=== PATIENT | male | born 1960 | race Caucasian/White ===

== ENCOUNTER 2018-02-03 15:16 | Outpatient (CLI) | payer BC ==
[~2018-02-03] VITALS: Ht 175.3 cm; Wt 99.8 kg
[2018-02-03] MEDS ORDERED: AMLO5TAB7 PO (15:44)
[2018-02-03] MEDS ORDERED: BISO5TAB PO (15:44)
[2018-02-03] MEDS ORDERED: LOVA20TA2 PO (15:44)
[2018-02-03] MEDS ORDERED: LISI-552 PO (15:44)
[2018-02-03] MEDS ORDERED: TRIA1TAB3 PO (15:44)
== END 2018-02-03 15:45 | disposition home or self-care (01) ==
LOC: PREOP 15:16
PROVIDERS: ATTEND Internal Medicine
DX: Z01.818 Encounter for other preprocedural examination (principal)

== ENCOUNTER 2018-02-07 07:38 | Day surgery (SDC) | payer BC ==
--- NOTE | 2018-01-23 15:46 | HISTORY AND PHYSICAL ---
DATE OF SERVICE: COLONOSCOPY H AND P HISTORY OF PRESENT ILLNESS: The patient is a 56-year-old white male seen for followup of hypertension in the office on 01/15. He reports that he has been feeling well except he does have some chronic left ankle pain with a history of traumatic arthritis. He is not aware of any family history for colon cancer and has noted no blood in the stool either bright red or melanotic. PAST MEDICAL HISTORY: Significant for hypertension and hyperlipidemia as well as traumatic arthritis, left ankle. PHYSICAL EXAMINATION: GENERAL: Revealed a well-appearing white male in no acute distress. VITAL SIGNS: Blood pressure 120/70, weight was down 1 pound to 222.8 pounds. CHEST: Clear. CARDIOVASCULAR: Regular rate and rhythm without murmur, S3 or S4. HEENT: He is a Mallampati class 3 oropharyngeal configuration. No evidence for erythema or exudate noted. ABDOMEN: Soft, supple without mass or organomegaly or tenderness. EXTREMITIES: Reveal no cyanosis, clubbing or edema. ASSESSMENT AND PLAN: The patient was set up for screening colonoscopy on 02/07/2018. Rectal exam deferred at the time of the procedure. Prep instructions with Suprep kit were given and questions were answered. Job ID: [id number] DocumentID: [id number] Dictated Date: 01/22/2018 15:00:18 Chief Nurse Anesthetist Date: 01/22/2018 15:21:17 Dictated By: DIONISIO ROBLES MD [facility]
[~2018-02-07] VITALS: Ht 175.3 cm; Wt 99.8 kg
[~2018-02-07 07:38] MED LIST: AMLO5TAB7 PO; BISO5TAB PO; LISI-552 PO; LOVA20TA2 PO; TRIA1TAB3 PO
[2018-02-07] MEDS ORDERED: D5 LR IV SOLUTION 1,000 ML IV STA (07:42)
[2018-02-07] MEDS ORDERED: LIDOCAINE JELLY 2% 6 ML SYRINGE MM PRN (07:45)
[2018-02-07] MEDS ORDERED: MIDAZOLAM 2 MG/2 ML (VERSED) VIAL IVP ONE (07:45)
[2018-02-07] MEDS ORDERED: fentaNYL INJECTION 100 MCG/2 ML AMP IVP ONE (07:45)
[2018-02-07 07:57] VITALS: BP 122/83
--- NOTE | 2018-02-07 08:03 | Pre-Op Note & Conscious Sedat ---
Pre-Operative Progress Note H&P Reviewed The H&P was reviewed, patient examined and no changes noted. Date H&P Reviewed: Feb 07, 2018 Time H&P Reviewed: 08:02 Conscious Sedation Pre-Proced ASA Score 2 For ASA 3 and 4: Consider anesthesia and medical clearance. Also, for patients with a history of failed moderate sedation consider anesthesia. Airway Lungs Heart ASA score ASA 1: a normal healthy patient ASA 2: a patient with a mild systemic disease (mid diabetes, controlled hypertension, obesity ASA 3: a patient with a severe systemic disease that limits activity (angina , COPD, prior Myocardial infarction) ASA 4: a patient with an incapacitating disease that is a constant threat to life (CHF, renal failure) ASA 5: a moribund patient not expected to survive 24 hrs. (ruptured aneurysm) ASA 6: a declared brain patient whose organs are being harvested. For emergent operations, add the letter E after the classification Mallampati Classification Grade 3 Sedation Plan Analgesia, Amnesia, Plan communicated to team members, Discussed options with patient/fam, Discussed risks with patient/fam The patient is an appropriate candidate to undergo the planned procedure, sedation, and anesthesia. The patient immediately re-assessed prior to indication. DIONISIO ROBLES MD Feb 07, 2018 08:03
[2018-02-07] MEDS ORDERED: fentaNYL INJECTION 100 MCG/2 ML AMP ONE (08:21)
[2018-02-07] MEDS ORDERED: LIDOCAINE JELLY 2% 6 ML SYRINGE ONE (08:21)
[2018-02-07] MEDS ORDERED: MIDAZOLAM 2 MG/2 ML (VERSED) VIAL ONE ×2 (08:22)
[2018-02-07] MEDS ORDERED: SIMETHICONE 40 MG/0.6 ML (MYLICON DROPS) 30 ML BTL ONE (08:57)
[2018-02-07] MEDS ORDERED: SIMETHICONE 40 MG/0.6 ML (MYLICON DROPS) 30 ML BTL PO PRN (09:00)
[2018-02-07 09:20] VITALS: BP 115/69
[2018-02-07 09:50] VITALS: BP 94/75
[2018-02-07 10:07] VITALS: BP 94/75
--- NOTE | 2018-02-07 20:58 | OPERATIVE REPORT ---
DATE OF SERVICE: COLONOSCOPY SUMMARY INDICATION FOR THE PROCEDURE: Screening colonoscopy. The patient was placed in the left lateral decubitus position. Prior to undergoing colonoscopy, digital rectal evaluation was performed. Prostate was normal in size, anodular, nontender to digital inspection. Anal sphincter tone was normal and the perianal reflexes intact. No abnormalities were noted. No additional inspection of the distal rectal vault or anal canal. The colonoscope was then inserted into the rectum under direct visualization and advanced to the cecum. The cecum was identified by identification of the ileocecal valve and cecal strap. Photographic documentation was obtained. Careful inspection was made as colonoscope withdrawn. The patient tolerated the procedure well. FINDINGS: There is no evidence for internal or external hemorrhoids. Present in the rectosigmoid junction were 2 diminutive polyps, both were biopsied and ablated and submitted for histopathology with no subsequent blood loss. Both were in the 1-2 mm size range. The sigmoid colon, descending colon, splenic flexure, transverse colon, ascending colon, hepatic flexure and cecum were unremarkable. ASSESSMENT: Two diminutive polyps, one hyperplastic, the other one possibly small early adenoma were noted. Subsequently, biopsied and ablated present at the rectosigmoid junction. This was otherwise normal colonoscopy to the cecum. As long as there are no surprise on histopathology report, we will be recommending screening colonoscopy in 10 years as the patient is not aware of any family history for colon cancer. Job ID: [id number] DocumentID: [id number] Dictated Date: 02/07/2018 11:22:20 Tree Topper Date: 02/07/2018 20:57:31 Dictated By: DIONISIO ROBLES MD [facility]
== END 2018-02-07 10:08 | disposition home or self-care (01) ==
LOC: ENDO 07:38
PROVIDERS: ATTEND Internal Medicine
DX: Z12.11 Encounter for screening for malignant neoplasm of colon (principal); K63.5 Polyp of colon; I10 Essential (primary) hypertension
CPT/HCPCS: 88305